=== PATIENT | female | born 1995 | race Caucasian/White ===

== ENCOUNTER 2017-11-07 22:07 | Emergency (ER) | payer OTHER ==
[2017-11-07 22:17] VITALS: BP 112/73
--- NOTE | 2017-11-07 22:57 | EDM.PDOC ---
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 When she missed her period on August 19 or , she took a home test that was positive. She is . By dates, the patient is 15 weeks 5 days gestation. She saw Dr. Durand this past 11/04/2017, for the first time. heart tones and a pelvic exam were done, but no ultrasound. HIEU 05/27/2018 was given. Blood work was drawn yesterday, 11/06/2017. The patient now presents to the ED, stating that she started having painless vaginal spotting tonight. She also reports vaginal itching tonight, but no vaginal discharge. The patient acknowledges that she had sexual intercourse earlier today. No urinary symptoms. The patient does not have a PCP. - Related Data Allergies Allergy/AdvReac Type Severity Reaction Status Date / Time Sulfa (Sulfonamide Allergy Intermediate Rash Verified 09/30/14 17:25 Antibiotics) pineapple Allergy Rash Verified 11/07/17 22:16 Home Meds: Home Meds Docosahexanoic Acid [ Dha] 200 mg PO DAILY 11/07/17 [History] Past Medical History - Past Health History Medical/Surgical History: Denies Medical/Surgical History Social & Family History - Family History Family Medical History: Noncontributory - Tobacco Use Smoking Status *Q: Never Smoker Second Hand Smoke Exposure: Yes - Caffeine Use Caffeine Use: Reports: Soda - Alcohol Use Alcohol Use History: No Days Per Week of Alcohol Use: 0 - Recreational Drug Use Recreational Drug Use: No - Living Situation & Occupation Living situation: Reports: Single, with Family (Mother + 5 others) Occupation: Employed ([employer]) ED ROS GENERAL - Review of Systems Review Of Systems: ROS reveals no pertinent complaints other than HPI. ED EXAM - Physical Exam Exam: See Below Exam Limited By: No Limitations General Appearance: Alert, WD/WN, No Apparent Distress Eye Exam: Bilateral Eye: Normal Inspection Ears: Normal External Exam, Hearing Grossly Normal Nose: Normal Inspection, No Blood Throat/Mouth: Normal Inspection, Normal Lips, Normal Voice, No Airway Compromise Head: Atraumatic, Normocephalic Neck: Normal Inspection, Full Range of Motion Respiratory/Chest: No Respiratory Distress, Lungs Clear, Normal Breath Sounds, No Accessory Muscle Use Cardiovascular: Normal Peripheral Pulses, Regular Rate, Rhythm, No Gallop, No JVD, No Murmur, No Rub GI/Abdominal Exam: Normal Bowel Sounds, Soft, Non-Tender, No Organomegaly, No Distention, No Abnormal Bruit, No Mass Rectal Exam: Deferred (Female) Exam: Normal External Exam, Normal Speculum Exam. No: Vaginal Bleeding, Vaginal Discharge, Vaginal Lesions, Vaginal Tears Back Exam: Normal Inspection, Full Range of Motion, NT Extremities: Normal Inspection, Normal Range of Motion, No Pedal Edema, Normal Capillary Refill Neurological: Alert, Oriented, Normal Cognition, No Motor/Sensory Deficits Psychiatric: Normal Affect Skin Exam: Warm, Dry, Intact, Normal Color, No Rash Course - Vital Signs Last Recorded V/S: Last Vital Signs Temp 36.5 C 11/07/17 22:10 Pulse 85 11/07/17 22:10 Resp 18 11/07/17 22:10 BP 112/73 11/07/17 22:10 Pulse Ox 100 11/07/17 22:10 - Orders/Labs/Meds Orders: Active Orders 24 hr Category Date Time Status Heart Tones [RC] ASDIRECTED Care 11/07/17 22:50 Active UA W/MICROSCOPIC [URIN] Stat Lab 11/07/17 23:40 Ordered Labs: Laboratory Tests 11/07/17 Range/Units 23:40 Urine Color Yellow (Yellow) Urine Appearance Clear (Clear) Urine pH 6.0 (5.0-8.0) Ur Specific [place] 1.015 (1.005-1.030) Urine Protein Negative (Negative) Urine Glucose (UA) Negative (Negative) Urine Ketones 2+ H (Negative) Urine Occult Blood Trace-lysed H (Negative) Urine Nitrite Negative (Negative) Urine Bilirubin Negative (Negative) Urine Urobilinogen 0.2 (0.2-1.0) Ur Leukocyte Esterase Negative (Negative) Urine RBC 0-5 (0-5) /hpf Urine WBC 0-5 (0-5) /hpf Ur Epithelial Cells 0-5 (0-5) /hpf Urine Bacteria Occasional (FEW) /hpf Urine Mucus Not seen (FEW) /hpf - Re-Assessments/Exams Free Text/Narrative Re-Assessment/Exam: 11/07/17 22:58 heart tone returned 134-140. On pelvic examination, there is absolutely no vaginal blood, new or old. As the patient has no bleeding and has no complaint of pelvic pain, ectopic is no longer of concern and therefore blood work, RhoGam, and pelvic ultrasound are no longer necessary. I have canceled them all. I have kept the urinalysis in order to rule out a UTI, as asymptomatic bacteriuria is treated during . 11/08/17 00:32 Urinalysis results discussed with the patient and her mother. No hematuria, and no evidence of a UTI. I will discharge the patient home. Departure - Departure Time of Disposition: 00:32 Disposition: Home, Self-Care 01 Condition: Good Clinical Impression: Concern about current without diagnosis - Discharge Information Referrals: Gail Durand MD [Primary Care Provider] - Forms: ED Department Discharge Additional Instructions: You were seen in the emergency room for concern about possible spotting. On physical examination, no vaginal bleeding was found. Workup in the ER included a urinalysis and heart tones. Your urinalysis was normal. No blood in your urine, and no sign of a urinary tract infection. heart tones were normal for gestational age. The cause of the possible spotting was not found. Follow-up with Dr. Durand at your previously scheduled appointment in late November. If any other problems, please do not hesitate to return to the ER. - My Orders Last 24 Hours: My Active Orders 11/07/17 22:50 Heart Tones [RC] ASDIRECTED 11/07/17 23:40 UA W/MICROSCOPIC [URIN] Stat - Assessment/Plan Last 24 Hours: My Active Orders 11/07/17 22:50 Heart Tones [RC] ASDIRECTED 11/07/17 23:40 UA W/MICROSCOPIC [URIN] Stat
== END 2017-11-08 00:39 | disposition home or self-care (01) ==
LOC: JD.ED 22:07
DX: Z34.02 Encounter for supervision of normal first pregnancy, second trimester (principal); Z3A.15 15 weeks gestation of pregnancy
CPT/HCPCS: 81001; 99282; 99284

== ENCOUNTER 2018-11-20 20:20 | Emergency (ER) | payer MEDICAID, OTHER ==
[2018-11-20 20:29] VITALS: BP 101/61
--- NOTE | 2018-11-20 21:07 | EDM.PDOC ---
ED HPI GENERAL MEDICAL PROBLEM - General Chief Complaint: Genitourinary Problem Stated Complaint: POSS UTI Time Seen by Provider: 11/20/18 20:32 Source of Information: Reports: Patient, RN Notes Reviewed History Limitations: Reports: No Limitations - History of Present Illness INITIAL COMMENTS - FREE TEXT/NARRATIVE: Patient is a 22-year-old female who presents to the ED for the evaluation of urinary pain. The patient noticed that this afternoon she developed burning with urination, increased urinary frequency, increased urinary urgency. She denies any fevers or chills at this time. She states she has some mild suprapubic discomfort, however does not have any other abdominal pain. She notes that she has had UTIs in the past, and this feels a lot like a UTI that she has had in the past. She notes an allergy to sulfa medications. She has not been previously evaluated for these urinary symptoms. She denies any vaginal discharge at this time. She denies any further abdominal pain or kidney pain. Bladder Pain Score (Numeric/FACES): 8 - Related Data Allergies Allergy/AdvReac Type Severity Reaction Status Date / Time Sulfa (Sulfonamide Allergy Intermediate Rash Verified 11/20/18 20:29 Antibiotics) pineapple Allergy Rash Verified 11/20/18 20:29 Home Meds: Home Meds Ferrous Sulfate [Iron] 325 mg PO DAILY 05/16/18 [History] Docusate Sodium [Colace] 100 mg PO BID PRN cap 05/18/18 [Rx] Ibuprofen [Motrin] 600 mg PO Q6H PRN tablet 05/18/18 [Rx] Ciprofloxacin HCl [Cipro] 250 mg PO BID #10 tablet 11/20/18 [Rx] Past Medical History - Past Health History Medical/Surgical History: Denies Medical/Surgical History Genitourinary History: Reports: UTI, 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 Denies: Constipation, Diarrhea : Reports: Dysuria, Frequency, Hematuria, Urgency. Denies: Discharge Musculoskeletal: Reports: No Symptoms Skin: Reports: No Symptoms Neurological: Reports: No Symptoms Psychiatric: Reports: No Symptoms Hematologic/Lymphatic: Reports: No Symptoms Immunologic: Reports: No Symptoms ED EXAM, RENAL/ - Physical Exam Exam: See Below Exam Limited By: No Limitations General Appearance: Alert, WD/WN, No Apparent Distress Respiratory/Chest: No Respiratory Distress, Lungs Clear, Normal Breath Sounds, No Accessory Muscle Use, Chest Non-Tender Cardiovascular: Normal Peripheral Pulses, Regular Rate, Rhythm, No Murmur GI/Abdominal: Normal Bowel Sounds, Soft, No Distention, No Mass, Tender (mild tenderness to suprapubic area.) Extremities: Normal Inspection, Normal Capillary Refill Neurological: Alert, Oriented, Normal Cognition, No Motor/Sensory Deficits Psychiatric: Normal Affect, Normal Mood Skin Exam: Warm, Dry, Intact, Normal Color, No Rash Course - Vital Signs Last Recorded V/S: Last Vital Signs Temp 98.3 F 11/20/18 20:26 Pulse 70 11/20/18 20:26 Resp 16 11/20/18 20:26 BP 101/61 11/20/18 20:26 Pulse Ox 97 11/20/18 20:26 - Orders/Labs/Meds Orders: Active Orders 24 hr Category Date Time Status CULTURE URINE [RM] Routine Lab 11/20/18 20:59 Ordered Labs: Laboratory Tests 11/20/18 Range/Units 20:34 Urine Color [place] H (Yellow) Urine Appearance Turbid H (Clear) Urine pH 6.5 (5.0-8.0) Ur Specific [place] > or = 1.030 (1.005-1.030) Urine Protein 3+ H (Negative) Urine Glucose (UA) Negative (Negative) Urine Ketones Trace H (Negative) Urine Occult Blood 3+ H (Negative) Urine Nitrite Positive H (Negative) Urine Bilirubin 1+ H (Negative) Urine Urobilinogen 1.0 (0.2-1.0) Ur Leukocyte Esterase 1+ H (Negative) Urine RBC >100 H (0-5) /hpf Urine WBC 40-50 H (0-5) /hpf Urine WBC Clumps Moderate (NOT SEEN) /hpf Urine Bacteria Moderate H (FEW) /hpf Urine Mucus Not seen (FEW) /hpf - Re-Assessments/Exams Free Text/Narrative Re-Assessment/Exam: 11/20/18 21:04 Patient presents to the ED for the evaluation of urinary discomfort. I did obtain a urinalysis, and this was grossly positive for a UTI at this time. I will provide her with ciprofloxacin 250 mg BID for 5 days. I did send her urine sample for culture to make sure that I picked an appropriate antibiotic. Departure - Departure Time of Disposition: 21:04 Disposition: Home, Self-Care 01 Condition: Fair Clinical Impression: UTI (urinary tract infection) Qualifiers: Urinary tract infection type: acute cystitis Hematuria presence: with hematuria Qualified Code(s): N30.01 - Acute cystitis with hematuria - Discharge Information *PRESCRIPTION DRUG MONITORING PROGRAM REVIEWED*: No *COPY OF PRESCRIPTION DRUG MONITORING REPORT IN PATIENT TIBURCIO: No Prescriptions: Ciprofloxacin HCl [Cipro] 250 mg PO BID #10 tablet Instructions: Urinary Tract Infection, Adult, [id number] Referrals: Gail Durand MD [Primary Care Provider] - Forms: ED Department Discharge Additional Instructions: You have been evaluated in the ED today for your urinary symptoms. Your urinalysis was positive for urinary tract infection at this time. Your urine will be sent for culture, You will be notified if you should need a change in your antibiotics. You have been prescribed ciprofloxacin, 250 mg twice a day for 5 days. Please take all of this medication if needed if you start feeling better. You may take Azo (Pyridium) for urinary pain relief, however this will make your urine turn bright orange. Please increase your oral fluid intake and stay well hydrated during this time. Please return to the ED if her symptoms should change or worsen. - My Orders Last 24 Hours: My Active Orders 11/20/18 20:59 CULTURE URINE [RM] Routine - Assessment/Plan Last 24 Hours: My Active Orders 11/20/18 20:59 CULTURE URINE [RM] Routine
== END 2018-11-20 21:15 | disposition home or self-care (01) ==
LOC: JD.ED 20:20
DX: N30.01 Acute cystitis with hematuria (principal); Z88.2 Allergy status to sulfonamides; Z91.018 Allergy to other foods; Z79.899 Other long term (current) drug therapy
CPT/HCPCS: 81001; 87086; 99283

== ENCOUNTER 2024-06-29 07:01 | Inpatient (IN) | payer MEDICAID ==
[~2024-06-29 07:01] MED LIST: Bupivacaine 0.25% 10 ML SDV ONE
[2024-06-29] MEDS ORDERED: Lidocaine 1% 50 ML MDV INJECT PRN (07:11)
[2024-06-29] MEDS ORDERED: Sodium Chloride 0.9% 10 ML Syringe FLUSH PRN (07:11)
[2024-06-29] MEDS ORDERED: Nalbuphine 10 MG/1 ML Vial IVPUSH PRN (07:11)
[2024-06-29] MEDS ORDERED: Acetaminophen 325 MG Tab PO PRN ×2 (07:11→15:41)
[2024-06-29] MEDS ORDERED: Oxytocin/0.9 % Sodium Chloride 30 UNIT/500 ML BAG IV SCH (07:30)
[2024-06-29] MEDS: Lactated Ringers 1,000 ML IV SCH (07:57)
[2024-06-29] MEDS: Oxytocin/0.9 % Sodium Chloride 30 UNIT/500 ML BAG IV SCH (08:01)
[2024-06-29 08:07] LABS: BASOPHILS PERCENT AUTO 0.3 % (0.0-1.0); EOSINOPHILS ABSOLUTE AUTO 0.3 K/mm3 (0.0-0.4); EOSINOPHILS PERCENT AUTO 4.9 % (0.0-6.0); HEMATOCRIT 37.2 % (37.0-47.0); HEMOGLOBIN 11.7 gm/dl (12.0-16.0); IMMATURE GRAN ABSOLUTE AUTO 0.03 K/mm3 (0.00-0.05); IMMATURE GRAN PERCENT AUTO 0.4 % (0.0-0.4); LYMPHOCYTES ABSOLUTE AUTO 1.6 K/mm3 (1.0-4.8); LYMPHOCYTES PERCENT AUTO 23.2 % (24.0-44.0); MEAN CORPUSCULAR HEMOGLOBIN 29.6 pg (28.0-32.0); MEAN CORPUSCULAR HGB CONC 31.5 g/dl (32.0-36.0); MEAN CORPUSCULAR VOLUME 94.2 fl (83.0-99.0); MEAN PLATELET VOLUME 11.2 fl (9.4-12.3); MONOCYTES ABSOLUTE AUTO 0.5 K/mm3 (0.0-0.8); MONOCYTES PERCENT AUTO 7.1 % (0.0-8.0); NEUTROPHILS ABSOLUTE AUTO 4.4 K/mm3 (1.8-7.7); NEUTROPHILS PERCENT AUTO 64.1 % (41.0-71.0); PLATELET COUNT,PLT 146 K/mm3 (150-400); RED BLOOD CELL COUNT 3.95 M/mm3 (4.10-5.30); WHITE BLOOD CELL COUNT,WBC 6.91 K/mm3 (3.9-11.3)
[2024-06-29] MEDS: Sodium Chloride 0.9% 10 ML Syringe FLUSH SCH (08:59)
[2024-06-29] MEDS: Ondansetron 4 MG/2 ML SDV IVPUSH PRN (11:59)
[2024-06-29] MEDS ORDERED: diphenhydrAMINE 50 MG/ML SDV IVPUSH PRN (12:39)
[2024-06-29] MEDS ORDERED: ePHEDrine 50 MG/ML SDV IVPUSH PRN (12:39)
[2024-06-29] MEDS: fentaNYL 100 MCG/2 ML SDV EPIDUR PRN (12:45)
[2024-06-29] MEDS: Bupivacaine/fentaNYL/NS 100 ML Bag EPIDUR PRN (12:45)
[2024-06-29] MEDS ORDERED: Docusate Sodium 100 MG Cap PO PRN (15:41)
[2024-06-29] MEDS: Benzocaine/Menthol 20%-0.5% Spray 78 GM Cannister TOP PRN (16:50)
[2024-06-29] MEDS: Witch Hazel Medicated Pads 40/Jar TOP PRN (16:50)
[2024-06-29] MEDS: Ibuprofen 600 MG Tab PO SCH (16:50)
[2024-06-30] MEDS: Ibuprofen 600 MG Tab PO PRN (08:48)
[2024-06-30 17:41] VITALS: BP 115/82; PULSE 63
== END 2024-06-30 17:30 | disposition home or self-care (01) | DRG 807 ==
LOC: JD.OB 07:01 → OBSVTOIN 14:52 → JD.OB 14:52
PROVIDERS: ADMIT Obstetrics & Gynecology; ATTEND Obstetrics & Gynecology
PROC: 10E0XZZ Delivery of Products of Conception, External Approach (ICD-10-PCS; principal; 2024-06-29)
PROC: 10907ZC Drainage of Amniotic Fluid, Therapeutic from Products of Conception, Via Natural or Artificial Opening (ICD-10-PCS; 2024-06-29)
PROC: 3E033VJ Introduction of Other Hormone into Peripheral Vein, Percutaneous Approach (ICD-10-PCS; 2024-06-29)
PROC: 3E0R3BZ Introduction of Anesthetic Agent into Spinal Canal, Percutaneous Approach (ICD-10-PCS; 2024-06-29)
PROC: 00HU33Z Insertion of Infusion Device into Spinal Canal, Percutaneous Approach (ICD-10-PCS; 2024-06-29)
PROC: 0UQMXZZ Repair Vulva, External Approach (ICD-10-PCS; 2024-06-29)
DX: O71.82 Other specified trauma to perineum and vulva (principal); Z37.0 Single live birth; Z3A.39 39 weeks gestation of pregnancy
CPT/HCPCS: 36415; 51701; 59025; 59409; 85025; 86592; 86850; 86900; 86901; A9270-GY; C1758; J0665; J2405; J3010; J3490; J7120; J7999